=== PATIENT | female | born 1990 | race Hispanic/Latino ===

== ENCOUNTER 2017-12-30 20:41 | Emergency (ER) | payer OTHER ==
[2017-12-30 21:27] VITALS: BP 110/69; PULSE 66; RESP 16; TEMP 97.7; O2SAT 100
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
== END 2017-12-30 23:15 | disposition home or self-care (01) ==
LOC: H.ER 20:41
DX: S20.212A Contusion of left front wall of thorax, initial encounter (principal); S16.1XXA Strain of muscle, fascia and tendon at neck level, initial encounter; S46.912A Strain of unspecified muscle, fascia and tendon at shoulder and upper arm level, left arm, initial encounter; V49.9XXA Car occupant (driver) (passenger) injured in unspecified traffic accident, initial encounter